=== PATIENT | female | born 1970 | race Caucasian/White ===

== ENCOUNTER 2022-05-04 22:53 | Observation (INO) ==
[2022-05-05 00:07] LABS: Basophils # 0.1 K/mcL (0.0-0.2); Basophils % 0.8 %; Eosinophils # 0.2 K/mcL (0.0-0.6); Eosinophils % 3.3 %; Hematocrit 40.3 % (35.3-44.9); Hemoglobin 13.4 g/dL (11.5-15.4); Immature Granulocytes % 0.5 % (0-4); Lymphocytes # 2.8 K/mcL (0.6-4.6); Lymphocytes % 44.4 %; Mean Corpuscular HGB Conc 33.3 g/dL (31.6-35.5); Mean Corpuscular Volume 93.3 fL (83.0-100.0); Mean Platelet Volume 10.8 fL (9.4-12.4); Monocytes # 0.6 K/mcL (0.0-1.3); Monocytes % 9.6 %; Neutrophils # 2.6 K/mcL (1.6-8.9); Platelet Count 183 K/mcL (140-400); Red Blood Count 4.32 M/mcL (3.82-4.97); Red Cell Distribution Width 12.1 % (11.5-14.5); Segmented Neutrophils % 41.4 %; White Blood Count 6.4 K/mcL (4.3-11.1)
[2022-05-05 00:23] LABS: BUN/Creatinine Ratio 16 (6-26); Blood Urea Nitrogen 15 mg/dL (6-20); Calcium 9.5 mg/dL (8.6-10.3); Carbon Dioxide 27 mEq/L (23-29); Chloride 106 mEq/L (98-107); Glucose 108 mg/dL (70-105); Osmolality,Calculated 291 (280-300); Potassium 4.3 mEq/L (3.5-5.1); Sodium 140 mEq/L (136-145); eGFR For African Americans > 60 (> 60); eGFR For Non-African Americans > 60 (> 60)
[2022-05-05 00:24] LABS: Troponin I < 0.03 ng/mL (< 0.04)
[2022-05-05] MEDS ORDERED: Aspirin 325 MG TABLET PO ONE (00:38)
[2022-05-05] MEDS: Nitroglycerin 0.4 MG TAB.SUBL SL PRN ×3 (01:14→01:27)
[2022-05-05] MEDS ORDERED: Morphine Sulfate 2 MG/ML SYRINGE IVP PRN (04:22)
[2022-05-05] MEDS ORDERED: Perflutren Lipid Microsphere 1.3 ML in 0.9 % Sodium Chloride 8.7 ML IVP PRN (04:23)
[2022-05-05] MEDS ORDERED: Naloxone 0.4 MG/ML INJ IVP PRN (04:25)
[2022-05-05] MEDS ORDERED: Acetaminophen 325 MG TABLET PO PRN (04:25)
[2022-05-05] MEDS ORDERED: Ondansetron 4 MG/2 ML VIAL IVP PRN (04:25)
[2022-05-05] MEDS: *HR* Heparin 5,000 UNIT/ML VIAL SQ SCH ×2 (06:09→12:45)
[2022-05-05] MEDS ORDERED: Regadenoson 0.4 MG/5 ML SYRINGE IVP ONE (06:22)
[2022-05-05] MEDS ORDERED: NP THYROID 60 MG PO SCH (06:30)
[2022-05-05 07:24] LABS: Chol/HDL Ratio 3.8 (0-4.9)
[2022-05-05 08:31] LABS: Estimated Average Glucose 123 mg/dl; Hemoglobin A1C 5.9 %
[2022-05-05] MEDS ORDERED: Aspirin Enteric Coated 81 MG Tablet PO SCH (09:00)
[2022-05-05] MEDS ORDERED: Cholecalciferol (D-3) 1,000 UNIT (25MCG) TABLET PO SCH (09:00)
[2022-05-05 11:21] VITALS: BP 148/60; PULSE 60; TEMP 97.7; O2SAT 93
== END 2022-05-05 14:16 | disposition home or self-care (01) ==
LOC: EMEROOARM 22:53 → 2ANU 22:53 → SUATTDRO 05-05 02:41 → 2ANU 05-05 03:05
PROVIDERS: ADMIT Internal Medicine; ATTEND Family Medicine